=== PATIENT | female | born 2000 | race Caucasian/White ===

== ENCOUNTER 2021-10-02 11:17 | Inpatient (IN) ==
[~2021-10-02 11:17] MED LIST: Azithromycin 500 MG in 0.9 % Sodium Chloride 250 ML IVPB PRN; CeFAZolin 2,000 MG/120 ML BAG IVPB ONE; Famotidine 20 MG/2 ML VIAL IVP ONE; Metoclopramide 10 MG/2 ML VIAL IVP ONE
[2021-10-02] MEDS ORDERED: Ringers Solution, Lactated 1,000 ML IVC SCH ×2 (11:30→17:01)
[2021-10-02 11:57] LABS: Basophils % 0.2 %; Eosinophils # 0.1 K/mcL (0.0-0.6); Eosinophils % 0.5 %; Hematocrit 38.9 % (35.3-44.9); Hemoglobin 12.9 g/dL (11.5-15.4); Immature Granulocytes % 0.5 % (0-4); Lymphocytes # 1.8 K/mcL (0.6-4.6); Lymphocytes % 13.4 %; Mean Corpuscular HGB Conc 33.2 g/dL (31.6-35.5); Mean Corpuscular Hemoglobin 28.2 pg (28.0-33.3); Mean Corpuscular Volume 85.1 fL (83.0-100.0); Mean Platelet Volume 10.6 fL (9.4-12.4); Monocytes # 0.8 K/mcL (0.0-1.3); Monocytes % 5.7 %; Neutrophils # 10.4 K/mcL (1.6-8.9); Platelet Count 242 K/mcL (140-400); Red Blood Count 4.57 M/mcL (3.82-4.97); Red Cell Distribution Width 13.2 % (11.5-14.5); Segmented Neutrophils % 79.7 %; White Blood Count 13.1 K/mcL (4.3-11.1)
[2021-10-02 12:17] LABS: Alanine Aminotransferase 5 Units/L (7-52); Aspartate Amino Transferase 10 Units/L (13-39); Lactate Dehydrogenase 139 Units/L (140-271); Uric Acid 5.1 mg/dL (2.3-7.6); eGFR For African Americans > 60 (> 60); eGFR For Non-African Americans > 60 (> 60)
[2021-10-02] MEDS ORDERED: Ondansetron 4 MG/2 ML VIAL ONE (12:46)
[2021-10-02] MEDS ORDERED: Acetaminophen IV 1,000 MG/100 ML BAG IVPB ONE ×2 (12:46→13:49)
[2021-10-02] MEDS ORDERED: *HR* Morphine Sulfate/PF 10 MG/10 ML AMPUL ONE (12:54)
[2021-10-02] MEDS ORDERED: *HR* FentaNYL (PF) 100 MCG/2 ML VIAL ONE (12:55)
[2021-10-02 13:26] LABS: Amphetamine Screen,Urine Negative ng/mL (Cutoff=1000); Barbiturate Screen,Urine Negative ng/mL (Cutoff=200); Benzodiazepines Screen,Urine Negative ng/mL (Cutoff=200); Cannabinoid Screen,Urine Negative ng/mL (Cutoff = 50); Cocaine Screen,Urine Negative ng/mL (Cutoff= 300); Creatinine,Urine 110 mg/dL; Opiate Screen,Urine Negative ng/mL (Cutoff=300); Phencyclidine Screen,Urine Negative ng/mL (Cutoff=25); Protein/Creatinine Ratio,Urine 0.92 mg/mg (0.00-0.20)
[2021-10-02] MEDS ORDERED: *HR* Oxytocin 10 UNIT/ML VIAL ONE (14:06)
[2021-10-02] MEDS ORDERED: Ketorolac 30 MG/ML VIAL ONE (14:29)
[2021-10-02] MEDS ORDERED: Oxytocin 20 units/ LR 1000 mL 20 UNIT/1,000 ML BAG IVC ONE (14:51)
[2021-10-02] MEDS ORDERED: *HR* OxyCODONE Immed Rel 5 MG TABLET PO PRN (17:01)
[2021-10-02] MEDS ORDERED: Metoclopramide 10 MG/2 ML VIAL IVP PRN (17:01)
[2021-10-02] MEDS ORDERED: Ondansetron 4 MG/2 ML VIAL IVP PRN (17:01)
[2021-10-02] MEDS ORDERED: Simethicone 80 MG TAB.CHEW PO PRN (17:01)
[2021-10-02] MEDS ORDERED: Oxytocin 20 units/ LR 1000 mL 20 UNIT/1,000 ML BAG IVC SCH (17:01)
[2021-10-02] MEDS: Ibuprofen 600 MG TABLET PO SCH (21:50)
[2021-10-02] MEDS: Acetaminophen 325 MG TABLET PO SCH (21:51)
[2021-10-03 05:38] LABS: Basophils % 0.1 %; Eosinophils # 0.1 K/mcL (0.0-0.6); Eosinophils % 0.4 %; Hematocrit 33.7 % (35.3-44.9); Immature Granulocytes % 0.6 % (0-4); Lymphocytes # 1.6 K/mcL (0.6-4.6); Lymphocytes % 11.6 %; Mean Corpuscular HGB Conc 32.9 g/dL (31.6-35.5); Mean Corpuscular Hemoglobin 28.8 pg (28.0-33.3); Mean Corpuscular Volume 87.5 fL (83.0-100.0); Mean Platelet Volume 10.5 fL (9.4-12.4); Monocytes # 1.2 K/mcL (0.0-1.3); Monocytes % 8.5 %; Neutrophils # 10.7 K/mcL (1.6-8.9); Platelet Count 190 K/mcL (140-400); Red Blood Count 3.85 M/mcL (3.82-4.97); Red Cell Distribution Width 13.2 % (11.5-14.5); Segmented Neutrophils % 78.8 %; White Blood Count 13.5 K/mcL (4.3-11.1)
[2021-10-03 05:49] LABS: Hemoglobin 11.1 g/dL (11.5-15.4)
[2021-10-03] MEDS: Prenatal Vit/FA 1 EACH TABLET PO SCH (09:19)
[2021-10-03] MEDS: Ibuprofen 600 MG TABLET PO SCH ×2 (09:19→21:15)
[2021-10-03] MEDS: Acetaminophen 325 MG TABLET PO SCH ×2 (09:20→21:15)
[2021-10-03 19:44] VITALS: O2SAT 96
[2021-10-03] MEDS: *HR* Enoxaparin 60 MG/0.6 ML SYRINGE SQ SCH (21:16)
[2021-10-04 07:46] VITALS: BP 128/83; PULSE 110; TEMP 98.3
[2021-10-04] MEDS: Acetaminophen 325 MG TABLET PO SCH (09:31)
[2021-10-04] MEDS: *HR* Enoxaparin 60 MG/0.6 ML SYRINGE SQ SCH (09:31)
[2021-10-04] MEDS: Ibuprofen 600 MG TABLET PO SCH (09:31)
[2021-10-04] MEDS: Prenatal Vit/FA 1 EACH TABLET PO SCH (09:32)
== END 2021-10-04 12:39 | disposition home or self-care (01) ==
LOC: 1NENULAB → 1NENUOBS 16:59
PROVIDERS: ADMIT Obstetrics & Gynecology; ATTEND Obstetrics & Gynecology